=== PATIENT | female | born 1955 | race Caucasian/White ===

== ENCOUNTER 2021-01-18 07:01 | Day surgery (SDC) | payer MEDICARE ==
[2021-01-18] MEDS ORDERED: Propofol 200 MG/20 ML SDV ONE (07:09)
[2021-01-18] MEDS ORDERED: fentaNYL 100 MCG/2 ML SDV ONE (07:10)
[2021-01-18] MEDS ORDERED: Midazolam 1 MG/ML 2 ML SDV ONE (07:10)
[2021-01-18] MEDS ORDERED: Sodium Chloride 0.9% 1,000 ML IV SCH (08:00)
--- NOTE | 2021-01-18 11:37 | OR ---
DATE OF PROCEDURE: 01/18/2021 SURGEON: Homero Thomas MD PROCEDURE: Colonoscopy. FINDINGS: Ascending colon polyp, approximately 5 mm, completely removed using cold biopsy forceps. COMPLICATIONS: None. SHIPPING PACKER: None. ANESTHESIA: MAC. PREOPERATIVE DIAGNOSIS: Screening colonoscopy. POSTOPERATIVE DIAGNOSIS: Screening colonoscopy. RISKS: Risks, benefits, alternatives, and limitations including, but not limited to infection, bleeding, perforation, false positives and false negatives were explained to the patient who wished to proceed. PROCEDURE IN DETAIL: The patient was placed in left lateral decubitus position. The colonoscope was introduced and advanced atraumatically to the ileocecal valve. Scope was brought back to the ascending, transverse, descending colon, and retroflexed. No evidence of old or new blood. No masses. The aforementioned polyp was identified and completely removed using cold biopsy forceps. No abnormalities on retroflexion. The prep was marginal with approximately 85% to 90% of the luminal surface could be seen. No abnormalities on retroflexion. No diverticulosis. No colitis. The patient tolerated the procedure well. Homero Thomas MD /[id number]
== END 2021-01-18 10:27 | disposition home or self-care (01) ==
LOC: JP.SDS 07:01
PROVIDERS: ATTEND Surgery
DX: Z12.11 Encounter for screening for malignant neoplasm of colon (principal); K63.5 Polyp of colon; K63.89 Other specified diseases of intestine
CPT/HCPCS: J2250; J2704; J3010; J7030

== ENCOUNTER 2021-03-05 13:03 | Emergency (ER) | payer MEDICARE ==
--- NOTE | 2021-03-05 13:16 | EDM.PDOC ---
ED HPI GENERAL MEDICAL PROBLEM - General Chief Complaint: Chest Pain Stated Complaint: CHEST PAIN Time Seen by Provider: 03/05/21 13:25 Source of Information: Reports: Patient, Old Records, RN History Limitations: Reports: No Limitations - History of Present Illness INITIAL COMMENTS - FREE TEXT/NARRATIVE: 65 yo female here after abrupt onset of chest pain that was severe for a matter of about 20 seconds. After that she has had some mild chest pressure that has persisted. Was SOB when the pain was bad. Has no PHx of CAD. Had a negative cath sometime in the past. No calf pain. Is a non-smoker. Has had both of her Covid vaccines. Onset: Today, Sudden Onset Date: 03/05/21 Duration: Other (duration seconds) Location: Reports: Chest Quality: Reports: Pressure Severity: Mild (now, was severe earlier briefly) Improves with: Reports: Other (time) Worsens with: Reports: Other (unknown) Context: Reports: Other (See HPI) Associated Symptoms: Reports: Chest Pain, Shortness of Breath Treatments RE DYE HAND: Reports: Other (see below) (none) Chest Pain Score (Numeric/FACES): 4 - Related Data Allergies Allergy/AdvReac Type Severity Reaction Status Date / Time No Known Allergies Allergy Verified 03/05/21 13:15 Home Meds: Home Meds Acetaminophen 325 - 650 mg PO ASDIRECTED PRN 01/14/21 [History] Calcium Carbonate [Calcium] 500 mg PO DAILY 01/14/21 [History] Celecoxib [CeleBREX] 200 mg PO DAILY 01/14/21 [History] Cetirizine [ZyrTEC] 10 mg PO DAILY 01/14/21 [History] Cholecalciferol (Vitamin D3) [Vitamin D3] 1,000 unit PO DAILY 01/14/21 [History] Desvenlafaxine Succinate [Desvenlafaxine Succinate ER] 25 mg PO DAILY 01/14/21 [History] Levothyroxine [Synthroid] 50 mcg PO DAILY 01/14/21 [History] Multivit,Calc,Mins/Iron/Folic [Therapeutic-M Caplet] 1 tab PO DAILY 01/14/21 [History] buPROPion HCL [Bupropion Xl] 300 mg PO DAILY 01/14/21 [History] traZODone 100 mg PO BEDTIME 01/18/21 [History] Vit A/Vit C/Vit E/Zinc/Copper [Preservision] 1 tab PO DAILY 03/05/21 [History] Past Medical History Gastrointestinal History: Reports: Colon Polyp Musculoskeletal History: Reports: Fracture, Other (See Below) Other Musculoskeletal History: fingers Endocrine/Metabolic History: Reports: Hypothyroidism - Past Surgical History HEENT Surgical History: Reports: Adenoidectomy, Other (See Below) Other HEENT Surgeries/Procedures: ear tubes GI Surgical History: Reports: Colostomy, EGD Neurological Surgical History: Reports: Spinal Fusion, Other (See Below) Other Neurological Surgeries/Procedures: Brain surgery Social & Family History - Caffeine Use Caffeine Use: Reports: None ED ROS GENERAL - Review of Systems Review Of Systems: See Below Constitutional: Reports: No Symptoms HEENT: Reports: No Symptoms Respiratory: Reports: Shortness of Breath (not now) Cardiovascular: Reports: Chest Pain. Denies: Palpitations GI/Abdominal: Reports: No Symptoms : Reports: No Symptoms Musculoskeletal: Reports: No Symptoms Skin: Reports: No Symptoms Neurological: Reports: No Symptoms Psychiatric: Reports: No Symptoms ED EXAM, GENERAL - Physical Exam Exam: See Below Exam Limited By: No Limitations General Appearance: Alert, WD/WN, No Apparent Distress Eye Exam: Bilateral Eye: Normal Inspection Ears: Normal External Exam, Normal Canal, Hearing Grossly Normal Ear Exam: Bilateral Ear: Auricle Normal, Canal Normal Nose: Normal Inspection, No Blood Throat/Mouth: Normal Inspection, Normal Lips, Normal Oropharynx, Normal Voice, No Airway Compromise Head: Atraumatic, Normocephalic Neck: Normal Inspection Respiratory/Chest: No Respiratory Distress, Lungs Clear, Normal Breath Sounds, No Accessory Muscle Use Cardiovascular: Regular Rate, Rhythm, No Edema GI/Abdominal: Normal Bowel Sounds, Soft, Non-Tender, No Distention Extremities: Normal Inspection, Normal Range of Motion, Non-Tender, No Pedal Edema. No: Pedal Edema, Meg's Sign Neurological: Alert, Oriented, CN II-XII Intact, Normal Cognition, No Motor/Sensory Deficits Psychiatric: Normal Affect, Normal Mood Skin Exam: Warm, Dry, Intact, Normal Color, No Rash #1 Interpretation EKG Date: 03/05/21 Time: 13:10 Rhythm: NSR Rate (Beats/Min): 66 Monon: Normal P-Wave: Present QRS: Normal ST-T: Normal QT: Normal Comparison: NA - No Prior EKG Course - Vital Signs Last Recorded V/S: Last Vital Signs Temp 36.6 C 03/05/21 13:13 Pulse 64 03/05/21 14:44 Resp 19 03/05/21 14:44 BP 152/77 H 03/05/21 14:44 Pulse Ox 96 03/05/21 14:44 - Orders/Labs/Meds Orders: Active Orders 24 hr Category Date Time Status EKG Documentation Completion [RC] ASDIRECTED Care 03/05/21 13:14 Active Iopamidol [Isovue-370 (76%)] Med 03/05/21 14:45 Active 100 ml IV . DIRECTED Sodium Chloride 0.9% [Normal Saline] 100 ml Med 03/05/21 14:45 Active IV ASDIRECTED Sodium Chloride 0.9% [Saline Flush] Med 03/05/21 14:21 Active 10 ml FLUSH ASDIRECTED PRN Saline Lock Insert [OM.PC] Routine Oth 03/05/21 14:21 Ordered EKG 12 Lead [EK] Routine Ther 03/05/21 13:14 Ordered Medication Orders Sodium Chloride (Normal Saline) 100 mls @ 4 mls/sec IV ASDIRECTED LEANNA Stop: 03/05/21 18:00 Last Admin: 03/05/21 14:55 Dose: 4 mls/sec Documented by: ZANE Iopamidol (Iopamidol 755 Mg/Ml 100 Ml Bottle) 100 ml IV . DIRECTED LEANNA Stop: 03/05/21 18:00 Last Admin: 03/05/21 14:55 Dose: 100 ml Documented by: ZANE Sodium Chloride (Sodium Chloride 0.9% 10 Ml Syringe) 10 ml FLUSH ASDIRECTED PRN PRN Reason: Keep Vein Open Last Admin: 03/05/21 14:44 Dose: 10 ml Documented by: PIYUSH Labs: Laboratory Tests 03/05/21 03/05/21 03/05/21 Range/Units 13:37 13:37 13:37 WBC 4.3 L (4.5-11.0) K/uL RBC 4.19 (3.30-5.50) M/uL Hgb 12.6 (12.0-15.0) g/dL Hct 39.4 (36.0-48.0) % MCV 94 (80-98) fL MCH 30 (27-31) pg MCHC 32 (32-36) % Plt Count 170 (150-400) K/uL D-Dimer, Quantitative 638.49 H (0.0-500.0) ng/mL Sodium 139 L (140-148) mmol/L Potassium 4.2 (3.6-5.2) mmol/L Chloride 103 (100-108) mmol/L Carbon Dioxide 28 (21-32) mmol/L Anion Gap 12.2 (5.0-14.0) mmol/L BUN 17 (7-18) mg/dL Creatinine 0.9 (0.6-1.0) mg/dL Est Cr Clr Drug Dosing 58.99 mL/min Estimated GFR (MDRD) > 60 (>60) Glucose 94 (74-106) mg/dL Calcium 8.9 (8.5-10.1) mg/dL Troponin I (0.000-0.056) ng/mL 03/05/21 Range/Units 13:37 WBC (4.5-11.0) K/uL RBC (3.30-5.50) M/uL Hgb (12.0-15.0) g/dL Hct (36.0-48.0) % MCV (80-98) fL MCH (27-31) pg MCHC (32-36) % Plt Count (150-400) K/uL D-Dimer, Quantitative (0.0-500.0) ng/mL Sodium (140-148) mmol/L Potassium (3.6-5.2) mmol/L Chloride (100-108) mmol/L Carbon Dioxide (21-32) mmol/L Anion Gap (5.0-14.0) mmol/L BUN (7-18) mg/dL Creatinine (0.6-1.0) mg/dL Est Cr Clr Drug Dosing mL/min Estimated GFR (MDRD) (>60) Glucose (74-106) mg/dL Calcium (8.5-10.1) mg/dL Troponin I < 0.017 (0.000-0.056) ng/mL Meds: Medications Generic Name Dose Route Start Last Admin Trade Name Freq PRN Reason Stop Dose Admin Sodium Chloride 100 mls @ 4 mls/sec 03/05/21 14:45 03/05/21 14:55 Normal Saline IV 03/05/21 18:00 4 mls/sec ASDIRECTED LEANNA Administration Iopamidol 100 ml 03/05/21 14:45 03/05/21 14:55 Iopamidol 755 Mg/Ml 100 Ml Bottle IV 03/05/21 18:00 100 ml . DIRECTED LEANNA Administration Sodium Chloride 10 ml 03/05/21 14:21 03/05/21 14:44 Sodium Chloride 0.9% 10 Ml Syringe FLUSH 10 ml ASDIRECTED PRN Administration Keep Vein Open Discontinued Medications Generic Name Dose Route Start Last Admin Trade Name Freq PRN Reason Stop Dose Admin Aspirin 324 mg 03/05/21 13:29 03/05/21 13:57 Aspirin 81 Mg Tab.Chew PO 03/05/21 13:30 324 mg ONETIME ONE Administration Sodium Chloride 10 ml 03/05/21 14:39 03/05/21 14:55 Sodium Chloride 0.9% 10 Ml Syringe FLUSH 03/05/21 14:40 10 ml ONETIME ONE Administration - Radiology Interpretation Free Text/Narrative:: angio chest-no PE, ground glass present bilat Departure - Departure Time of Disposition: 15:34 Disposition: Home, Self-Care 01 Condition: Good Clinical Impression: Nonspecific chest pain Referrals: Concepcion Carter MD [Primary Care Provider] - Forms: ED Department Discharge Additional Instructions: Acetaminophen as needed. Recheck if worse. Your tests today showed no evidence of heart attack or pulmonary embolus. Sepsis Event Note (ED) - Evaluation Sepsis Screening Result: No Definite Risk - Focused Exam Vital Signs: Vital Signs Temp Pulse Resp BP Pulse Ox 03/05/21 14:44 64 19 152/77 H 96 03/05/21 13:40 70 17 133/73 97 03/05/21 13:13 36.6 C 67 16 136/72 96 - My Orders Last 24 Hours: My Active Orders 03/05/21 13:14 EKG Documentation Completion [RC] ASDIRECTED EKG 12 Lead [EK] Routine 03/05/21 14:21 Sodium Chloride 0.9% [Saline Flush] 10 ml FLUSH ASDIRECTED PRN Saline Lock Insert [OM.PC] Routine 03/05/21 14:45 Iopamidol [Isovue-370 (76%)] 100 ml IV . DIRECTED Sodium Chloride 0.9% [Normal Saline] 100 ml IV ASDIRECTED - Assessment/Plan Last 24 Hours: My Active Orders 03/05/21 13:14 EKG Documentation Completion [RC] ASDIRECTED EKG 12 Lead [EK] Routine 03/05/21 14:21 Sodium Chloride 0.9% [Saline Flush] 10 ml FLUSH ASDIRECTED PRN Saline Lock Insert [OM.PC] Routine 03/05/21 14:45 Iopamidol [Isovue-370 (76%)] 100 ml IV . DIRECTED Sodium Chloride 0.9% [Normal Saline] 100 ml IV ASDIRECTED
[2021-03-05] MEDS ORDERED: Aspirin 81 MG Tab.Chew PO ONE (13:29)
[2021-03-05] MEDS ORDERED: Sodium Chloride 0.9% 10 ML Syringe FLUSH PRN (14:21)
[2021-03-05] MEDS ORDERED: Sodium Chloride 0.9% 10 ML Syringe FLUSH ONE (14:39)
[2021-03-05] MEDS ORDERED: Iopamidol 755 Mg/ML 100 ML Bottle IV SCH (14:45)
[2021-03-05] MEDS ORDERED: Sodium Chloride 0.9% 100 ML IV SCH (14:45)
--- NOTE | 2021-03-05 15:13 | CT ---
Ang Chest CLINICAL HISTORY: Elevated d-dimer, SOB, chest pressure TECHNIQUE: Thin section axial contiguous tomographic sections were taken through the chest after bolus IV iodinated contrast administration. Coronal and sagittal images were reconstructed. Auto dosage reduction and iterative reconstruction techniques employed. FINDINGS: There are patchy groundglass opacities diffusely throughout both lung hernandez. No mediastinal mass or suspicious lymphadenopathy is identified. There are no pleural effusions. There are no filling defects in the pulmonary arteries. Aorta is free of aneurysm. IMPRESSION: Diffuse bilateral groundglass opacities. This may represent a diffuse pneumonitis. Pulmonary edema is felt less likely No evidence pulmonary embolus
== END 2021-03-05 15:46 | disposition home or self-care (01) ==
LOC: JP.ED 13:03
DX: R07.89 Other chest pain (principal); E03.9 Hypothyroidism, unspecified; Z79.899 Other long term (current) drug therapy
CPT/HCPCS: 36415; 71275; 80048; 84484; 85027; 85379; 93005; 93010; 99283; 99285; A9270; Q9967